=== PATIENT | female | born 2000 | race Caucasian/White ===

== ENCOUNTER → 2023-12-04 15:43 | Outpatient (CLI) | payer OTHER, SELFPAY ==
[2023-12-04 17:17] LABS: COVID-19 CEPHEID 4-PLEX PCR Negative (Negative); Influenza A - CEPHEID Flu A NEGATIVE (NEGATIVE); Influenza B - CEPHEID Flu B NEGATIVE (NEGATIVE); Respiratory Syncytial Virus Negative (Negative)
== END ==
PROVIDERS: Visit Provider Physician Assistant Medical
DX: R05.1 Acute cough (principal)
CPT/HCPCS: 0241U